=== PATIENT | male | born 1965 | race Hispanic/Latino ===

== ENCOUNTER 2021-07-18 20:53 | Observation (INO) | payer BC ==
[2021-07-19 00:42] VITALS: BMI 29.1
[2021-07-19] MEDS ORDERED: Acetaminophen 325 MG TAB PO PRN (00:59)
[2021-07-19] MEDS ORDERED: Ondansetron PF 4 MG/2 ML Vial IVP PRN (00:59)
[2021-07-19] MEDS ORDERED: Nitroglycerin 0.4 MG TAB (25 Tab Bottle) SL PRN (00:59)
[2021-07-19] MEDS ORDERED: hydrALAZINE 20 MG/ML VIAL SLOW IVP PRN (01:10)
[2021-07-19 01:48] LABS: Troponin I Less than 0.010 ng/mL (< 0.028)
[2021-07-19 04:48] LABS: #Eosinphils 0.2 thou/uL (0.0-0.7); #Lymphocytes 1.7 thou/uL (1.20-3.40); #Monocytes 0.7 thou/uL (0.11-0.59); #Neutrophils 5.5 thou/uL (1.40-6.50); %Basophils 0.5 % (0.0-1.0); %Eosinophils 2.8 % (0.0-10.0); %Lymphocytes 20.8 % (21.0-51.0); %Monocytes 8.5 % (0.0-10.0); %Neutrophils 67.5 % (42.0-75.0); Hemoglobin 15.4 g/dL (14.0-18.0); Mean Corpuscular HGB CONC 33.9 g/dL (32.0-36.0); Mean Corpuscular Hemoglobin 30.3 pg (27.0-31.0); Mean Corpuscular Volume 89.2 fL (78.0-98.0); Mean Platelet Volume 8.1 fL (7.4-10.4); Platelet Count 137 thou/uL (130-400); White Blood Cell (WBC) Count 8.1 thou/uL (4.8-10.8)
[2021-07-19 05:09] LABS: Anion Gap 10 mmol/L (10-20); BUN (Urea Nitrogen) 20 mg/dL (8.4-25.7); Calc. Creatinine Clearance 94 mL/min (70-130); Calcium 8.8 mg/dL (7.8-10.44); Carbon Dioxide 25 mmol/L (22-29); Cardiac Risk 4.3 (Less than 4.5); Chloride 108 mmol/L (98-107); Cholesterol 186 mg/dl (< 200 Desired); Glucose 106 mg/dL (70-105); HDL Cholesterol 43 mg/dL (>60 Neg Risk); LDL Cholesterol, Calculated 119 mg/dL; Potassium 3.7 mmol/L (3.5-5.1); Sodium 139 mmol/L (136-145); Triglycerides 119 mg/dL (Less than 150)
[2021-07-19] MEDS ORDERED: Enoxaparin Sodium 40 MG/0.4 ML SYRINGE SC SCH (09:00)
[2021-07-19 13:03] VITALS: BP 135/79; TEMP 97.7
== END 2021-07-19 15:15 | disposition home or self-care (01) ==
LOC: 2SW 20:53
PROVIDERS: ADMIT Internal Medicine; ATTEND Hospitalist
DX: R07.89 Other chest pain (principal); K21.9 Gastro-esophageal reflux disease without esophagitis; E78.5 Hyperlipidemia, unspecified; I10 Essential (primary) hypertension; Z20.822 Contact with and (suspected) exposure to COVID-19; Z79.899 Other long term (current) drug therapy; Z91.041 Radiographic dye allergy status; Z87.891 Personal history of nicotine dependence
CPT/HCPCS: 36415; 78452; 80048; 80061; 84484; 85025; 93017; A9500; G0378

== ENCOUNTER 2021-08-01 08:03 | Outpatient (CLI) | payer BC ==
[2021-08-01] MEDS ORDERED: methylPREDNISolone Sod Succ/PF 125 MG/2 ML VIAL ONE (10:22)
[2021-08-01] MEDS ORDERED: diphenhydrAMINE 25 MG CAP ONE (10:22)
[2021-08-01] MEDS ORDERED: diphenhydrAMINE 50 MG/ML VIAL ONE (10:23)
[2021-08-01] MEDS ORDERED: Hydrocortisone Sod Succ/PF 100 mg/2 ml Vial IVP SCH (10:45)
[2021-08-01] MEDS ORDERED: Famotidine 40 MG/4 ML VIAL SLOW IVP SCH (10:45)
[2021-08-01] MEDS ORDERED: diphenhydrAMINE 50 MG/ML VIAL IVP SCH (10:45)
== END 2021-08-01 08:04 | disposition home or self-care (01) ==
LOC: CT 08:03
PROVIDERS: ATTEND Nurse Practitioner Family
DX: R10.32 Left lower quadrant pain (principal)
CPT/HCPCS: 74177; J1200; J1720; J2930